=== PATIENT | female | born 1945 | race Caucasian/White ===

== ENCOUNTER 2018-11-19 02:45 | Outpatient (CLI) | payer MEDICARE, SELFPAY ==
[2018-11-19 11:21] LABS: HCT 32.6 % (36.0-46.0); HGB 10.9 g/dL (12.0-15.5); Hemoglobin A1C 6.3 % (4.5-6.2); Mean Corp. HGB Concentration 33.4 g/dL (32.0-36.0); Mean Corpuscular Hemoglobin 33.2 pg (27.0-33.0); Mean Corpuscular Volume 99.4 fL (80-95); Mean Platelet Volume 10.4 fL (8.0-11.0); Platelet Count 205 x1000/uL (130-400); RBC 3.28 m/cumm (4.00-5.20); RBC Distribution Width 13.2 % (11.7-14.6); White Blood Cell Count 5.77 k/cumm (4.4-10.8)
[2018-11-19 11:25] LABS: ALT 16 U/L (12-78); AST 17 U/L (15-37); Albumin 3.9 g/dL (3.4-5.0); Alkaline Phosphatase 103 U/L (46-116); Anion Gap 10.3 mmol/L (3-11); BUN 20 mg/dL (7-18); Bilirubin, Total 0.9 mg/dL (0.2-1.0); CO2 25.7 mmol/L (21.0-32.0); Calcium 9.7 mg/dL (8.5-10.1); Chloride 104 mmol/L (98-107); Cholesterol 236 mg/dL (50-200); Glucose 111 mg/dL (70-100); HDL Cholesterol 72 mg/dL (40-60); LDL CHOLESTEROL 145 mg/dL (<100); Potassium 4.5 mmol/L (3.5-5.1); Sodium 140 mmol/L (136-145); Total Protein 7.1 g/dL (6.4-8.2); Triglyceride 116 mg/dL (30-150)
== END 2018-11-19 03:05 ==
PROVIDERS: PCP Nurse Practitioner; Visit Provider Nurse Practitioner
DX: E78.00 Pure hypercholesterolemia, unspecified (principal); I10 Essential (primary) hypertension; R73.01 Impaired fasting glucose; E11.9 Type 2 diabetes mellitus without complications; R41.3 Other amnesia
CPT/HCPCS: 36415; 80053; 80061; 83721; 85027; 83036

== ENCOUNTER 2019-03-07 04:07 | Outpatient (CLI) | payer MEDICARE, SELFPAY ==
[2019-03-07 12:54] LABS: HCT 30.7 % (36.0-46.0); HGB 10.2 g/dL (12.0-15.5); Mean Corp. HGB Concentration 33.2 g/dL (32.0-36.0); Mean Corpuscular Hemoglobin 33.6 pg (27.0-33.0); Mean Platelet Volume 10.5 fL (8.0-11.0); Platelet Count 212 x1000/uL (130-400); RBC 3.04 m/cumm (4.00-5.20); RBC Distribution Width 13.3 % (11.7-14.6); White Blood Cell Count 6.61 k/cumm (4.4-10.8)
[2019-03-07 13:30] LABS: Ferritin 218 ng/mL (8-388); Folate 15.4 ng/mL (8.6-20.0); TSH (W/Ref FT4) 2.06 uIU/mL (0.36-3.74); Vitamin B12 379 pg/mL (193-986)
== END 2019-03-07 04:27 ==
PROVIDERS: PCP Nurse Practitioner; Visit Provider Nurse Practitioner
DX: D64.9 Anemia, unspecified (principal); I10 Essential (primary) hypertension; R71.8 Other abnormality of red blood cells
CPT/HCPCS: 36415; 85027; 82607; 82728; 82746; 84443

== ENCOUNTER 2020-01-07 02:37 | Outpatient (CLI) | payer MEDICARE, SELFPAY ==
[2020-01-07 11:50] LABS: ALT 15 U/L (14-59); AST 19 U/L (15-37); Albumin 3.9 g/dL (3.4-5.0); Alkaline Phosphatase 106 U/L (46-116); Anion Gap 8.4 mmol/L (3-11); BUN 21 mg/dL (7-18); Bilirubin, Total 0.9 mg/dL (0.2-1.0); CO2 28.6 mmol/L (21.0-32.0); Calcium 9.3 mg/dL (8.5-10.1); Calculated LDL 95 mg/dL (<100); Chloride 104 mmol/L (98-107); Cholesterol 183 mg/dL (<200); Glucose 112 mg/dL (74-106); HDL Cholesterol 73 mg/dL (40-60); Potassium 4.4 mmol/L (3.5-5.1); Sodium 141 mmol/L (136-145); Total Protein 6.8 g/dL (6.4-8.2); Triglyceride 79 mg/dL (<150)
== END 2020-01-07 02:57 ==
PROVIDERS: PCP Nurse Practitioner; Visit Provider Nurse Practitioner
DX: I10 Essential (primary) hypertension (principal); E78.00 Pure hypercholesterolemia, unspecified
CPT/HCPCS: 36415; 80053; 80061

== ENCOUNTER 2020-11-03 02:05 | Outpatient (CLI) | payer MEDICARE, SELFPAY ==
--- NOTE | 2020-11-03 11:15 | DI.RAD_ITS ---
EXAM: XR KNEE LT 3V AP,LAT,REJI CLINICAL HISTORY: left knee pain,m25.562. TECHNIQUE: 2D digital imaging was performed. COMPARISON: No exams were available for comparison FINDINGS: Three views reveal no evidence of fracture. There appears to be a small amount of increased joint fl uid. There are significant degenerative changes most evident in the patellofemoral and lateral sangeetha rtments. Chondrocalcinosis noted in the lateral compartment. No ominous osseous lesions. IMPRESSION: Degenerative changes. Small joint effusion. DATA REPOSITORY: RADIATION DOSE DELIVERED:
== END 2020-11-03 02:25 ==
PROVIDERS: PCP Nurse Practitioner; Visit Provider Nurse Practitioner
DX: M25.562 Pain in left knee (principal); M25.462 Effusion, left knee; M17.12 Unilateral primary osteoarthritis, left knee
CPT/HCPCS: 73562

== ENCOUNTER → 2020-12-09 08:18 | Outpatient (BNVA) | payer MEDICARE, SELFPAY | PROVIDERS: PCP Nurse Practitioner; Referring Provider Nurse Practitioner; Visit Provider Student in an Organized Health Care Education/Training Program | DX: M17.12 Unilateral primary osteoarthritis, left knee (principal) | CPT/HCPCS: 20610; 99203; J1040 ==

== ENCOUNTER → 2021-03-14 13:19 | Outpatient (BNVA) | payer MEDICARE, SELFPAY | PROVIDERS: PCP Nurse Practitioner; Referring Provider Nurse Practitioner; Visit Provider Student in an Organized Health Care Education/Training Program | DX: M17.12 Unilateral primary osteoarthritis, left knee (principal) | CPT/HCPCS: 20610; J1040 ==

== ENCOUNTER 2021-04-30 15:12 | Outpatient (REF) | payer MEDICARE, SELFPAY ==
[2021-05-02 12:25] LABS: COVID-19 RT-PCR UVMMC Result Negative (Negative)
== END 2021-04-30 15:13 | disposition home or self-care (01) ==
LOC: LBN 15:12
PROVIDERS: PCP Nurse Practitioner; Visit Provider Physician Assistant Medical
DX: Z20.822 Contact with and (suspected) exposure to COVID-19 (principal); R09.89 Other specified symptoms and signs involving the circulatory and respiratory systems
CPT/HCPCS: U0003

== ENCOUNTER 2021-06-18 22:15 | Inpatient (IN) | payer MEDICARE, SELFPAY ==
[2021-06-18] VITALS (21 sets, daily range): BP systolic 126–182; BP diastolic 75–116; PULSE 60–143; RESP 12–26; TEMP 36.3–37.1; O2SAT 90–100
--- NOTE | 2021-06-18 21:45 | DI.CT_ITS ---
Exam(s) CT HEAD WO EXAM: CT HEAD WO CLINICAL HISTORY: stroke, altered. TECHNIQUE: Imaging Protocol: Axial computed tomography images with coronal and sagittal reformatted images were created and reviewed COMPARISON: CT HEAD WITHOUT CONTRAST from 10/11/2017 FINDINGS: There are no skull fractures nor fluid in the visualized paranasal sinuses. Patient is intubated. Is a large amount of subarachnoid and intraventricular acute blood and hemorrhage fills and dilates t he entire ventricular system there is cerebellar tonsillar ectopia evident which was not evident on t he 2018 study. IMPRESSION: Large subarachnoid and intraventricular hemorrhage. RADIATION DOSE DELIVERED: 933.45mGy.cm Total DLP DATA REPOSITORY: All CT scans at this facility are submitted to the National Radiology Data Registry (NRDR) Dose Index Registry (DIR) with the [employer] (ACR). RADIATION OPTIMIZATION: All CT scans at this facility use at least one of these dose optimization te chniques: automated exposure control; mA and/or kV adjustment per patient size (includes targeted exa ms where dose is matched to clinical indication); or iterative reconstruction.
--- NOTE | 2021-06-18 21:45 | RT.EKG_ITS ---
APPROVED REPORT Exam: Resting ECG Reason for Exam: AMS Patient Location: E HR:118 bpm ECG Measurements Heart Rate 118 AXIS WV [id number] P [id number] QRSd 115 QRS -28 QT 329 T 108 QTc 463 Conclusion Atrial flutter with predominant 2:1 AV block...A-rate 238, multiple Ps Probable left ventricular hypertrophy...(RaVL+SV3)xQRSd >300 Nonspecific T abnormalities, lateral leads...T <-0.10mV, I aVL V5 V6 Minimal ST depression, no stemi.
--- NOTE | 2021-06-18 21:56 | DI.CT_ITS ---
Exam(s) CT CHEST WO EXAM: CT CHEST WO CLINICAL HISTORY: stroke, altered, intubated. TECHNIQUE: Multi planar reconstructions were performed. CONTRAST MATERIAL: None COMPARISON: CR CHEST 2 VIEWS PA,LAT from 01/10/2017 CR CHEST 2 VIEWS PA,LAT from 01/10/2017 FINDINGS: CHEST: LUNGS: The patient is intubated. Distal tip of the endotracheal tube none is above the francis. Ther e is an NG tube in the stomach. There are extensive bilateral infiltrates, both ground-glass and confluent, involving all lobes of tammy th lungs but most prominent in the lower lobes. No associated pleural effusions. MEDIASTINUM: There is no obvious hilar nor mediastinal adenopathy. Right thyroid lobe is enlarged and contains partially calcified nodules.No obvious axillary adenopathy CARDIAC: Heart size upper normal. No pericardial effusion.Caliber of the thoracic aorta is within no rmal limits. VISUALIZED UPPER ABDOMEN:No adrenal masses evident OSSEOUS: No significant osseous lesions.. IMPRESSION: 1. Extensive bilateral infiltrates. Suspicious for Covid pneumonia. No pleural effusions nor intrat horacic adenopathy. 2. Endotracheal tube distal tip is approximately 3 cm above the francis. NG tube is in the stomach. 3. RADIATION DOSE DELIVERED: 555mGy.cm Total DLP DATA REPOSITORY: All CT scans at this facility are submitted to the National Radiology Data Registry (NRDR) Dose Index Registry (DIR) with the [employer] (ACR). RADIATION OPTIMIZATION: All CT scans at this facility use at least one of these dose optimization te chniques: automated exposure control; mA and/or kV adjustment per patient size (includes targeted exa ms where dose is matched to clinical indication); or iterative reconstruction.
--- NOTE | 2021-06-18 22:11 | W.ED.GENAD ---
Discharge Plan Disposition Patient Disposition: [facility] INPATIENT Condition: Critical Discharge Details Chief Complaint: CVA/TIA Clinical Impression: Intracranial hemorrhage, Aspiration pneumonia, Acute non-ST elevation myocardial infarction (NSTEMI), Acute respiratory failure, Need for comfort care Primary Care Provider: Elise Parra ED Provider: Amilcar Enriquez Home Meds and New Rx's Prescriptions: No Action omega-3 fatty acids [Fish Oil Concentrate] 1,000 mg capsule 1,000 mg PO DAILY RF: 0 Centrum Complete 1 EACH tablet 1 tab-cap PO DAILY RF: 0 Combigan 5 ML drops 5 ml Ophthalmic BID Qty: 1 RF: 0 atorvastatin 20 mg tablet 20 mg PO QHS Qty: 90 RF: 3 lisinopril 20 mg tablet 20 mg PO DAILY Qty: 90 RF: 3 citalopram 20 mg tablet 20 mg PO DAILY Qty: 90 RF: 3 Medical Decision Making This is a 76-year-old female with a past medical history of glaucoma, high cholesterol, hypertension, cataract surgery, who presents today for evaluation of stroke. Per EMS at 8 PM (2 hour and 20 minutes prior to arrival) the patient complained of a sudden onset headache. She and her family state that she does not usually get headaches. She went to the bathroom, and then came back out of the bathroom and collapsed into a chair. No history of trauma at that time. Per EMS she did not strike her head. Upon EMS arrival patient was altered, with sonorous respirations. Oxygenation stable. Patient was immediately brought to the ER for further management. During the transition to the ED EMS did note episodes of notable bradycardia which resolved on its own as well as rapidly diminishing respiratory effort requiring bagging upon arrival to the ED. Patient's family states that the patient is full code. No history of blood thinners, stroke or previous intracranial etiologies. No other known complaints or modifying factors at this time. Exam demonstrates response to pain with decerebrate posturing for the left upper extremity however no response to any pain or movement for the right upper or lower extremities. There is also mild twitching of the left lower extremity with response to pain. Agonal respirations are noted. Neuro exam otherwise limited. GCS of 4. Pupils are fixed at 3 to 4 mm. Differential at this time is highest for stroke, or bleed. 12:[address] scan shows large subarachnoid hemorrhage with intraventricular hemorrhage. There is also evidence of herniation with tonsillar crowding at the britt platelets are normal. The patient is not on anticoagulation. Initially the patient pressure was high at 170, however this normalized on its own as we are prepping to start nicardipine drip. CT scan of the chest shows evidence of notable severe multilobar pulmonary disease, likely multilobar pneumonia. I suspect this is secondary to aspiration pneumonia, CMS does state she had gurgling respirations on their assessment initially. Unasyn has been started. Patient's neurologic status remains the same. Patient's troponin is elevated, EKG shows no STEMI. The brain bleed is clearly a contraindication for aspirin or blood thinners. I had a notably extensive conversation with the patient's , son, daughter, and grandson. I was very clear and inform them of the patient's current status, the high likelihood of a poor prognosis, and the potential for . I also made it clear that there is unlikely that the patient would ever return to even a seminormal state. Understanding all of this and the patient's current clinical scenario the family made it unequivocally clear that it was of the highest priority to send the patient to a tertiary care center for continued neuro ICU management. We contacted [facility] and they are on diversion and do not have any beds. We contacted the [facility] and they do not have any beds for transfer. We contacted [facility], they do not have any beds for transfer. We contacted [facility] in [place] and they do not have any beds available for transfer. We contacted [facility] and discussed the case with them. They do have a bed available for transfer. I did speak with the neurosurgeon Dr. Ritchie, and he recommends transfer to the ED for further management and placement in the. No neurosurgical intervention indicated at this time. Patient's blood pressure remains in the 120s currently. Neuro status stable from initial assessment. Additionally we do not have any crews that are able to transfer the patient from both [facility] services or [facility]. [facility] is not flying currently. We will try to facilitate [facility] ground transport to [place] We will start mannitol at 1 g per kg for the herniation, and 2 g of Keppra for seizure prevention. 12:47 AM Although [place] initially accepted transfer, they just called back and stated that they have changed their disposition and they will no longer be able to take the patient. We called the [facility] ground crew and they were halted. 1:30 AM [facility] did call us back and I spoke with Dr. Diallo and Dr. Rider of neurosurgery, and upon their review of the images, and the case, they feel that the likelihood of meaningful recovery is extremely slim even with heroic interventions. Family is arriving, and we will again reviewed the case with family and determine their desire for transfer. I did reevaluate the patient, and currently patient has no neurologic response. Her pupils are fixed at 3 mm. She has no movement or response to painful stimuli, she demonstrates no twitching. 2:08 AM After a long and extensive conversation with the , the son, and the daughter Alise, after a clear discussion of the likelihood of meaningful recovery, as well as mateus discussion about the patient's current prognostic state, family verbalizes that they feel that their mother's preference would be to be made comfortable, and would not want to have heroic interventions done if in the best case scenario she would not be able to live her life as she normally would prior to the stroke. Benadryl understanding this, family has elected to the patient here and transition her to comfort measures. Son Richie, daughter Alise, and are in agreement with this plan. Family is not willing to have the patient extubated at this time. I spoke with the hospitalist on-call Dr. Villa, he agrees with the plan. I will place bridging orders on his behalf. Patient will be admitted to the ICU. I have extensively reviewed the treatment plan with the patient. I have addressed all patient concerns at this time. I have also discussed the plan with the admitting physician and they agree with the current assessment and plan and have agreed to assume responsibility for the patient. All parties demonstrate verbal understanding and agreement with our assessment and plan at this time. The documentation in this chart was dictated using [employer] dictation software. Please excuse any dictation errors. FINDINGS: Brain: Large amount of subarachnoid and intraventricular hemorrhage, new from prior exam. Hemorrhage fills and moderately expands the lateral, 3rd and 4th ventricle. There is tonsillar crowding/herniation at the foramen magnum Cerebral ventricles: See Brain finding. Paranasal sinuses: Visualized sinuses are unremarkable. No fluid levels. Mastoid air cells: Visualized mastoid air cells are well aerated. Bones/joints: Unremarkable. No acute fracture. Soft tissues: Unremarkable. IMPRESSION: Large subarachnoid and intraventricular hemorrhage. ASSESSMENT: ASPECTS ([place] Stroke Program Early CT Score) is 10. Thank you for allowing us to participate in the care of your patient. Dictated and Authenticated by: Elvia Sánchez MD FINDINGS: Tubes, catheters and devices: Endotracheal tube in satisfactory position. Nasogastric tube in the stomach. Thyroid: Large right thyroid nodule. Follow-up as per institutional protocol. Trachea: Small amount of debris in the upper trachea. Lungs: Severe multilobar opacities most pronounced in the lower lobes. Superimposed on generalized ground-glass opacities and apical predominant interlobular septal thickening. Pleural spaces: No pneumothorax. No pleural effusion. Heart: Mild cardiomegaly. Aorta: Mild dilation of the ascending aorta. Normal caliber of the descending aorta.. Veins: Benign appearing intravenous gas left greater than right subclavian region. Lymph nodes: No enlarged lymph nodes. Gallbladder and bile ducts: Suspected cholelithiasis versus calcification in the gallbladder wall. Bones/joints: Minor densities in the anterior chest wall subcutaneous fat anterior to the sternum however no measurable collection or hematoma. Degenerative changes in the spine. No displaced fracture or subluxation. Soft tissues: No suspicious lesions. IMPRESSION: 1. Severe multilobar pulmonary disease as described. Probably multilobar pneumonia with superimposed edema. Less commonly severe alveolar and interstitial edema alone can have this appearance. 2. Mild cardiomegaly. 3. Lines and tubes in satisfactory position. 4. Small amount of debris in the upper trachea. 5. Incidental findings as described. Thank you for allowing us to participate in the care of your patient. Dictated and Authenticated by: Kristal Sandy MD 06/18/2021 11:42 PM Eastern Time ([place] & [place]) HPI General Date/Time Provider Initiated Documentation: 06/18/21 22:32. HPI Narrative: This is a 76-year-old female with a past medical history of glaucoma, high cholesterol, hypertension, cataract surgery, who presents today for evaluation of stroke. Per EMS at 8 PM the patient complained of a sudden onset headache. She and her family state that she does not usually get headaches. She went to the bathroom, and then came back out of the bathroom and collapsed into a chair. No history of trauma at that time. Per EMS she did not strike her head. Upon EMS arrival patient was altered, with sonorous respirations. Oxygenation stable. Patient was immediately brought to the ER for further management. During the transition to the ED EMS did note episodes of notable bradycardia which resolved on its own as well as rapidly diminishing respiratory effort requiring bagging upon arrival to the ED. Patient's family states that the patient is full code. No history of blood thinners, stroke or previous intracranial etiologies. No other known complaints or modifying factors at this time. Related Data Home Medications Medication Instructions Recorded Confirmed ipnapkkisudm-eaml-swwxu acid 1 tab-cap PO DAILY tab-cap 12/10/15 04/30/21 [Centrum Complete Multivit Tab] brimonidine-timolol [Combigan] 5 ml OPHTHALMIC BID #1 drp 01/18/17 06/02/21 omega-3 fatty acids 1,000 mg 1,000 mg PO DAILY 12/09/20 04/30/21 capsule atorvastatin 20 mg tablet 20 mg PO QHS #90 tab 02/08/21 06/18/21 lisinopril 20 mg tablet 20 mg PO DAILY #90 tab 02/08/21 06/18/21 citalopram 20 mg tablet 20 mg PO DAILY #90 tab 05/02/21 06/18/21 Previous Rx's Medication Instructions Recorded atorvastatin 20 mg tablet 20 mg PO QHS #90 tab 02/08/21 lisinopril 20 mg tablet 20 mg PO DAILY #90 tab 02/08/21 citalopram 20 mg tablet 20 mg PO DAILY #90 tab 05/02/21 Allergies Allergy/AdvReac Type Severity Reaction Status Date / Time No Known Drug Allergies Allergy Verified 06/18/21 22:33 Review of Systems All systems reviewed & are unremarkable except as noted in HPI and below PFSH Active Problem List Unilateral primary osteoarthritis, left knee (Acute) Colonoscopy refused (Acute) Mammogram declined (Acute) Depression (Chronic 10/04/17) Sebaceous cyst of labia (Acute) Branch retinal vein occlusion of left eye with macular edema (Acute) Elevated MCV (Acute) Anemia (Chronic) Anatomical narrow angle of both eyes (Acute 10/27/15) Anxiety (Acute 10/28/14) Cataracts, bilateral (Acute 10/27/15) Elevated cholesterol (Chronic 10/09/17) Glaucoma (Acute 02/24/16) Hypertension (Chronic 10/19/14) IFG (impaired fasting glucose) (Chronic 12/10/15) PCO (posterior capsular opacification), left (Acute 03/14/18) Poor memory (Acute 10/04/17) 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 Ruthie MD [facility]. Intravitreal injection with Avastin (01/03/16) 05/26/16 Shantanu Borrego MD Family History Mother , DM, Dementia at age 84. Dementia Father , Ca Prostate at age 82. Personal history of malignant neoplasm Prostate CA Son No problems noted. Son No problems noted. Daughter No problems noted. Social History Smoking/Tobacco Use Status: Never Smoking risk assessment performed?: Yes Alcohol Intake: current Alcohol Intake frequency: holidays/special occasions only Drug use: Never Substance use type: does not use Caregiver/Support person: No Household members: spouse Number of Children: 3 Communication Needs: None Current gender identity: female What type of physical activity do you participate in: walking Frequency: daily Exam Narrative Exam Narrative: 1.Const: Well-nourished, Well-developed, appearing stated age 2.Eyes: Pupils 3 mm, equal bilaterally. No significant reactivity. 3.ENT: Atraumatic external nose and ears. Moist MM. Neck: Symmetric, trachea midline, No thyromegaly. 4.CVS: +S1/S2, No murmurs or gallops. Peripheral pulses 2+ and equal in all extremities. Brisk capillary refill in all extremities. 5.RESP: Notably diminished respiratory effort. Clear to auscultation bilaterally. No wheezes rales or rhonchi 6.GI: Soft, Nontender/Nondistended, No hepatosplenomegaly. No guarding or rebound. 7.MSK: Normocephalic/Atraumatic, Extremities w/o deformity or ttp No cyanosis or clubbing, Normal movement of all extremities 8.Skin: Warm, Dry. No rashes or lesions. 9.Neuro: Decerebrate posturing with pain. GCS of 4 secondary to extension from pain. At this time patient demonstrates response to pain on the left, but no response on the right. This is opposite of what was initially found by EMS. Patient demonstrates decerebrate posturing only for the left arm, and twitching of the left lower extremity with pain. No movement on the right. Mild somewhat agonal respirations are noted. No other purposeful movements otherwise. 10.Psych: GCS of 4 Procedures Intubation Time out performed: Yes sedative: Etomidate Mg Given: 20 paralytic: Rocuronium Mg Given: 100 Laryngoscope: none ET Tube Size: 6 ET Tube Uncuffed: No Tube Secured Depth (cm): 21 Tube Secured Location: teeth Tube Placement Confirmation: visualized tube passing through cords and equal breath sounds bilaterally Patient Tolerated Procedure: well Intubation Complications: difficult intubation Additional Comments: Intubation was initially attempted with 7.5 endotracheal tube. Patient's vocal cords were notably close together, and I was unable to pass the tube through the cords. Tube was switched out to a 6.0 tube, and is passed through the cords without complication or difficulty. Intubation was otherwise uncomplicated. Critical Care Time Critical Care Time Critical Care Time: Yes Total Critical Care Time: 85 Attestation: Upon my evaluation, this patient had a high probability of imminent or life-threatening deterioration, which required my direct attention, intervention, and personal management. I have personally provided 85 minutes of critical care time exclusive of time spent on separately billable procedures. Time includes review of laboratory data, radiology results, discussion with consultants, and monitoring for potential decompensation. Interventions were performed as documented.
[2021-06-18] MEDS: Etomidate 20 MG/10 ML VIAL IVP (22:23)
[2021-06-18 22:28] LABS: Abs Immature Grans 0.09 10^3/uL (0.0-0.06); Absolute Basophil Count 0.07 10^3/uL (0.0-0.2); Absolute Eosinophil Count 0.11 10^3/uL (0.0-0.7); Absolute Lymphocyte Count 3.47 10^3/uL (1.2-3.4); Absolute Neutrophil Count 13.88 10^3/uL (1.2-6.7); Basophils % 0.4; Eosinophils % 0.6; HCT 36.1 % (36.0-46.0); HGB 11.3 g/dL (11.2-15.7); Immature Grans % 0.5; Lymphocytes % 18.9; MCH 31.2 pg (27.0-33.0); MCHC 31.3 % (32.0-36.0); MCV 99.7 fL (80-95); MPV 10.1 fL (8.0-11.0); Neutrophils % 75.6; Nucleated RBC 0 %; Platelet Count 228 10^3/uL (130-400); RBC 3.62 10^6/uL (3.93-5.22); RDW 12.7 % (11.7-14.6); RDW-SD 46.5 fL; WBC 18.36 10^3/uL (4.4-10.8)
[2021-06-18 22:29] LABS: Absolute Monocyte Count 0.73 10^3/uL (0.1-0.8)
[2021-06-18 22:30] LABS: Source Nasal/Nares
[2021-06-18] MEDS: PROPOFOL 1,000 MG/100 ML BTL 13.7 MG (22:30)
[2021-06-18 22:52] LABS: Salicylate < 2.8 mg/dL (<2.8)
[2021-06-18 22:56] LABS: Acetaminophen < 2 ug/mL (10-30)
[2021-06-18 22:57] LABS: ALT 40 U/L (14-59); AST 59 U/L (15-37); Albumin 4.2 g/dL (3.4-5.0); Alkaline Phosphatase 114 U/L (46-116); Anion Gap 13.1 mmol/L (3-11); BUN 25 mg/dL (7-18); Bilirubin, Total 0.8 mg/dL (0.2-1.0); CO2 22.9 mmol/L (21.0-32.0); CREATININE 0.9 mg/dL (0.55-1.02); Calcium 9.4 mg/dL (8.5-10.1); Chloride 101 mmol/L (98-107); Glucose 238 mg/dL (74-106); Potassium 3.8 mmol/L (3.5-5.1); Prothrombin Time 10.5 sec (9.3-11.0); Sodium 137 mmol/L (136-145); TSH (W/Ref FT4) 2.53 uIU/mL (0.36-3.74); Total Protein 7.7 g/dL (6.4-8.2)
[2021-06-18 22:59] LABS: Troponin I 0.69 ng/mL (<0.06)
[2021-06-18 23:08] LABS: PTT Activated < 17.8 sec (21.0-27.5)
[2021-06-18 23:13] LABS: COVID-19 PCR Negative (Negative)
--- NOTE | 2021-06-18 23:14 | DI.VRAD_ITS ---
PROCEDURE INFORMATION: Exam: CT Head Without Contrast Exam date and time: 06/18/2021 9:58 PM Age: 76 years old Clinical indication: Alteration of consciousness; Patient HX: Stroke, altered TECHNIQUE: Imaging protocol: Computed tomography of the head without contrast. Other technique: STROKE PROTOCOL was implemented. COMPARISON: CT HEAD WITHOUT CONTRAST 10/11/2017 2:31 PM FINDINGS: Brain: Large amount of subarachnoid and intraventricular hemorrhage, new from prior exam. Hemorrhage fills and moderately expands the lateral, 3rd and 4th ventricle. There is tonsillar crowding/herniation at the foramen magnum Cerebral ventricles: See Brain finding. Paranasal sinuses: Visualized sinuses are unremarkable. No fluid levels. Mastoid air cells: Visualized mastoid air cells are well aerated. Bones/joints: Unremarkable. No acute fracture. Soft tissues: Unremarkable. IMPRESSION: Large subarachnoid and intraventricular hemorrhage. ASSESSMENT: ASPECTS ([place] Stroke Program Early CT Score) is 10. Dictated and Authenticated by: Elvia Sánchez MD. Ordering:LANDY Fitzgerald MD
[2021-06-18 23:16] LABS: BE -4 mmol/L (-2-3); HCO3 24 mmol/L (22-26); pCO2 56 mmHg (35-45); pH 7.23 (7.35-7.45); pO2 122 mmHg (80-105); sO2 98 % (95-98); tCO2 23 mmol/L (23-27)
[2021-06-18 23:32] LABS: FIO2 100 %; Site Right Radial
[2021-06-18] MEDS: AMPICILLIN/SULBACTAM 3 GM in Normal Saline 100 ML IVPB (23:35)
--- NOTE | 2021-06-18 23:43 | DI.VRAD_ITS ---
PROCEDURE INFORMATION: Exam: CT Chest Without Contrast; Diagnostic Exam date and time: 06/18/2021 22:11 Age: 76 years old Clinical indication: Other: Stroke TECHNIQUE: Imaging protocol: Diagnostic computed tomography of the chest without contrast. 3D rendering (Not supervised by radiologist): MIP and/or 3D reconstructed images were created by the technologist. COMPARISON: CR CHEST 2 VIEWS PA,LAT 01/10/2017 14:44 FINDINGS: Tubes, catheters and devices: Endotracheal tube in satisfactory position. Nasogastric tube in the stomach. Thyroid: Large right thyroid nodule. Follow-up as per institutional protocol. Trachea: Small amount of debris in the upper trachea. Lungs: Severe multilobar opacities most pronounced in the lower lobes. Superimposed on generalized ground-glass opacities and apical predominant interlobular septal thickening. Pleural spaces: No pneumothorax. No pleural effusion. Heart: Mild cardiomegaly. Aorta: Mild dilation of the ascending aorta. Normal caliber of the descending aorta.. Veins: Benign appearing intravenous gas left greater than right subclavian region. Lymph nodes: No enlarged lymph nodes. Gallbladder and bile ducts: Suspected cholelithiasis versus calcification in the gallbladder wall. Bones/joints: Minor densities in the anterior chest wall subcutaneous fat anterior to the sternum however no measurable collection or hematoma. Degenerative changes in the spine. No displaced fracture or subluxation. Soft tissues: No suspicious lesions. IMPRESSION: 1. Severe multilobar pulmonary disease as described. Probably multilobar pneumonia with superimposed edema. Less commonly severe alveolar and interstitial edema alone can have this appearance. 2. Mild cardiomegaly. 3. Lines and tubes in satisfactory position. 4. Small amount of debris in the upper trachea. 5. Incidental findings as described. Dictated and Authenticated by: Kristal Sandy MD. Ordering:LANDY Fitzgerald MD
[2021-06-18 23:45] LABS: Bilirubin Negative (Negative); Blood Small (Negative); Clarity Clear (Clear); Glucose 500 mg/dL (Negative); Ketones 15 mg/dL (Negative); Leukocyte Esterase Negative (Negative); Nitrite Negative (Negative); Specific Gravity >= 1.030 (1.005-1.025); Urobilinogen 0.2 EU/dL (Up TO 0.2)
[2021-06-18 23:48] LABS: Bacteria Few HPF (Negative); C & S Indicated? No; Casts 0-2 Hyaline LPF (Negative); Crystals Negative HPF (Negative); Epithelial Cells Few HPF (Negative); Mucus Negative (Negative); WBC Negative HPF (0-5)
[2021-06-18 23:55] LABS: *AMPHETAMINES SCREEN URINE Negative (Negative); *BARBITURATES SCREEN URINE Negative (Negative); *BENZODIAZEPINES SCREEN URINE Negative (Negative); Cannabinoids THC Negative (Negative); Cocaine Screen,Urine Negative (Negative); METHADONE URINE SCREEN Negative (Negative); OPIATES URINE SCREEN Negative (Negative)
[2021-06-19] VITALS (217 sets, daily range): BP systolic 72–143; BP diastolic 35–88; PULSE 68–102; RESP 14–24; TEMP 36.2; O2SAT 94–100
[2021-06-19 00:11] LABS: Tricyclic Antidepressants Negative (Negative)
[2021-06-19] MEDS: levETIRAcetam 2,000 MG in Normal Saline 100 ML 400 MG IVPB (00:23)
[2021-06-19 01:14] LABS: BE -3 mmol/L (-2-3); FIO2 Unknown/Not Given %; FIO2L Unknown/Not Given L; HCO3 24 mmol/L (22-26); Site Arterial Line; pCO2 49 mmHg (35-45); pO2 156 mmHg (80-105); sO2 > 99 % (95-98)
[2021-06-19 01:48] LABS: Troponin I 4.76 ng/mL (<0.06)
[2021-06-19] MEDS: PROPOFOL 1,000 MG/100 ML BTL 13.65 MG IVPB (04:30)
--- NOTE | 2021-06-19 08:01 | HPE_ITS ---
Date of service: 06/19/21 Time of Service: 08:02 Assessment and Plan Assessment and plan (1) Intracranial hemorrhage: Status: Acute Assessment and plan: Spontaneous intracerebral bleed. She has normal platelet not on anticoagulants. There does not appear to be an immediate surgical intervention available nor does it appears this this would alter her overall course. The plan at this point he is comfort measures with planned extubation once family members have gathered. (2) Aspiration pneumonia: Status: Acute Assessment and plan: She is noted to have a pneumonitis by chest x-ray. This time she had an aspiration event during her respiratory distress. (3) Acute non-ST elevation myocardial infarction (NSTEMI): Status: Acute Assessment and plan: Her cardiac troponins are elevated. It looks like a non-ST elevation [place] occurred intercurrent with her bleed. (4) Acute respiratory failure: Status: Acute Assessment and plan: She was intubated in the emergency room electively for her respiratory failure. She has no spontaneous respiratory effort at this time. (5) Need for comfort care: Status: Acute Assessment and plan: Catastrophic intracerebral hemorrhage. Comfort measures only with planned extubation once family members have assembled. History of Present Illness History of Present Illness Chief Complaint: Cerebral hemorrhage/aspiration pneumonia/non-ST elevation [place] Narrative: This is a 76-year-old female that complained of sudden onset of headaches this past evening. She went to the bathroom and when she came out of the bathroom collapsed into a chair. Upon EMS arrival the patient was minimally responsive with sonorous respirations. During EMS transport she had an episode of bradycardia which resolved on its own. She was noted to have rapidly diminishing respiratory effort requiring bagging upon arrival to the ED. She did have a slight response to pain with decerebrate posturing on the left upper extremity but no response to pain or any movement on the right upper or lower extremities. Agonal respirations were noted. She was intubated by rapid sequence intubation. She is maintained on the ventilator. CT scan shows a large subarachnoid hemorrhage with intraventricular hemorrhage. There is evidence of herniation with tonsillar crowding at the foramen. Attempts were made in the ED for urgent transfer for neurosurgery. There were no available bed. On further discussion with the immediate family at the bedside she was made DNR/DNI and placed on comfort measures. There is a daughter coming in from [place] and the family did not want to remove life- sustaining treatments until her arrival. She is transported to the ICU for comfort measures care. Review of Systems Narrative: Unobtainable. [facility] Active Problem List (Updated 06/19/21 @ 08:10 by Portillo Barrios MD) Intracranial hemorrhage (Acute) Aspiration pneumonia (Acute) Acute non-ST elevation myocardial infarction (NSTEMI) (Acute) Acute respiratory failure (Acute) Need for comfort care (Acute) Medical History (Updated 06/19/21 @ 08:10 by Portillo Barrios MD) Anatomical narrow angle of both eyes (10/27/15) Anemia Anxiety Anxiety (10/28/14) Branch retinal vein occlusion of left eye with macular edema 04/18/19 Dr Henriquez, [facility] [place] Cataracts, bilateral (10/27/15) Colonoscopy refused Depression (10/04/17) Elevated cholesterol (10/09/17) Elevated MCV GLAUCOMA Glaucoma (02/24/16) [facility] Branch retinal vein occlusion w/macular edema left eye HLD (hyperlipidemia) HTN (hypertension) Hypertension (10/19/14) IFG (impaired fasting glucose) IFG (impaired fasting glucose) (12/10/15) Mammogram declined PCO (posterior capsular opacification), left (03/14/18) 03/14/18 L Macular Pucker, Dr Henriquez 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 Ruthie [facility]. Intravitreal injection with Avastin (01/03/16) 05/26/16 Shantanu Borrego MD Family History Mother , DM, Dementia at age 84. Dementia Father , Ca Prostate at age 82. Personal history of malignant neoplasm Prostate CA Son No problems noted. Son No problems noted. Daughter No problems noted. Social History Smoking/Tobacco Use Status: Never Smoking risk assessment performed?: Yes Alcohol Intake: current Alcohol Intake frequency: holidays/special occasions only Drug use: Never Substance use type: does not use Caregiver/Support person: No Household members: spouse Number of Children: 3 Communication Needs: None Current gender identity: female What type of physical activity do you participate in: walking Frequency: daily Meds Allergies and Home Medications Allergies Allergy/AdvReac Type Severity Reaction Status Date / Time No Known Drug Allergies Allergy Verified 06/18/21 22:33 Home Medications Medication Instructions Recorded Confirmed Type [id number] acid 1 tab-cap PO DAILY tab-cap 12/10/15 04/30/21 History [Centrum Complete Multivit Tab] brimonidine-timolol [Combigan] 5 ml OPHTHALMIC BID #1 drp 01/18/17 06/02/21 History omega-3 fatty acids 1,000 mg 1,000 mg PO DAILY 12/09/20 04/30/21 History capsule atorvastatin 20 mg tablet 20 mg PO QHS #90 tab 02/08/21 06/18/21 Rx lisinopril 20 mg tablet 20 mg PO DAILY #90 tab 02/08/21 06/18/21 Rx citalopram 20 mg tablet 20 mg PO DAILY #90 tab 05/02/21 06/18/21 Rx Exam Narrative Exam Narrative: On exam the patient is completely unresponsive. Painful stimuli to the lower extremity revealed no response. The sternal rub did give a slight movement of the left arm which was decerebrate posturing. There was no facial grimacing or response to painful stimuli. She has no spontaneous respiratory effort. Results Labs Result diagrams: 06/18/21 22:18 06/18/21 22:18 Labs: Laboratory Results - last 24 hr 06/18/21 06/18/21 06/18/21 22:05 22:18 22:18 WBC 18.36 H RBC 3.62 L Hgb 11.3 Hct 36.1 MCV 99.7 H MCH 31.2 MCHC 31.3 L RDW 12.7 Plt Count 228 MPV 10.1 Immature Gran % 0.5 Neutrophils % 75.6 Lymphocytes % 18.9 Monocytes % 4.0 Eosinophils % 0.6 Basophils % 0.4 Nucleated RBC % 0 Absolute Neutrophils 13.88 H Absolute Lymphocytes 3.47 H Absolute Monocytes 0.73 Absolute Eosinophils 0.11 Absolute Basophils 0.07 PT INR APTT ABG Sample Site ABG pH ABG pCO2 ABG pO2 ABG HCO3 ABG Total CO2 ABG O2 Saturation ABG Base Excess Oxygen Liter Flow FiO2 Sodium 137 Potassium 3.8 Chloride 101 Carbon Dioxide 22.9 Anion Gap 13.1 H BUN 25 H Creatinine 0.9 Estimated GFR/1.73 m2 >= 60.00 Glucose 238 H Calcium 9.4 Total Bilirubin 0.8 AST 59 H ALT 40 Alkaline Phosphatase 114 Troponin I 0.69 H* Total Protein 7.7 Albumin 4.2 TSH 2.53 Urine Color Urine Clarity Urine pH Ur Specific [place] Urine Protein Urine Ketones Urine Blood Urine Nitrite Urine Bilirubin Urine Urobilinogen Ur Leukocyte Esterase Urine RBC Urine WBC Ur Epithelial Cells Urine Crystals Urine Bacteria Urine Casts Urine Mucus Ur Culture Indicated? Urine Glucose Salicylates Urine Opiates Screen Urine Methadone Screen Acetaminophen Ur Barbiturates Screen Ur Tricyclics Screen Ur Amphetamines Screen U Benzodiazepines Scrn Urine Cocaine Screen Ur THC Screen COVID-19 Source Nasal/Nares SARS-CoV-2 (PCR) Negative 06/18/21 06/18/21 06/18/21 22:18 22:18 23:28 WBC RBC Hgb Hct MCV MCH MCHC RDW Plt Count MPV Immature Gran % Neutrophils % Lymphocytes % Monocytes % Eosinophils % Basophils % Nucleated RBC % Absolute Neutrophils Absolute Lymphocytes Absolute Monocytes Absolute Eosinophils Absolute Basophils PT 10.5 INR 1.0 APTT < 17.8 L ABG Sample Site Right Radial ABG pH 7.23 L ABG pCO2 56 H ABG pO2 122 H ABG HCO3 24 ABG Total CO2 23 ABG O2 Saturation 98 ABG Base Excess -4 L Oxygen Liter Flow FiO2 100 Sodium Potassium Chloride Carbon Dioxide Anion Gap BUN Creatinine Estimated GFR/1.73 m2 Glucose Calcium Total Bilirubin AST ALT Alkaline Phosphatase Troponin I Total Protein Albumin TSH Urine Color Urine Clarity Urine pH Ur Specific [place] Urine Protein Urine Ketones Urine Blood Urine Nitrite Urine Bilirubin Urine Urobilinogen Ur Leukocyte Esterase Urine RBC Urine WBC Ur Epithelial Cells Urine Crystals Urine Bacteria Urine Casts Urine Mucus Ur Culture Indicated? Urine Glucose Salicylates < 2.8 Urine Opiates Screen Urine Methadone Screen Acetaminophen < 2 Ur Barbiturates Screen Ur Tricyclics Screen Ur Amphetamines Screen U Benzodiazepines Scrn Urine Cocaine Screen Ur THC Screen COVID-19 Source SARS-CoV-2 (PCR) 06/18/21 06/18/21 06/19/21 23:30 23:30 00:53 WBC RBC Hgb Hct MCV MCH MCHC RDW Plt Count MPV Immature Gran % Neutrophils % Lymphocytes % Monocytes % Eosinophils % Basophils % Nucleated RBC % Absolute Neutrophils Absolute Lymphocytes Absolute Monocytes Absolute Eosinophils Absolute Basophils PT INR APTT ABG Sample Site Arterial Line ABG pH 7.30 L ABG pCO2 49 H ABG pO2 156 H ABG HCO3 24 ABG Total CO2 Not Applicable ABG O2 Saturation > 99 H ABG Base Excess -3 L Oxygen Liter Flow Unknown/Not Given FiO2 Unknown/Not Given Sodium Potassium Chloride Carbon Dioxide Anion Gap BUN Creatinine Estimated GFR/1.73 m2 Glucose Calcium Total Bilirubin AST ALT Alkaline Phosphatase Troponin I Total Protein Albumin TSH Urine Color Yellow Urine Clarity Clear Urine pH 7.0 Ur Specific [place] >= 1.030 H Urine Protein 100 H Urine Ketones 15 H Urine Blood Small H Urine Nitrite Negative Urine Bilirubin Negative Urine Urobilinogen 0.2 Ur Leukocyte Esterase Negative Urine RBC 5-10 H Urine WBC Negative Ur Epithelial Cells Few Urine Crystals Negative Urine Bacteria Few Urine Casts 0-2 Hyaline Urine Mucus Negative Ur Culture Indicated? No Urine Glucose 500 H Salicylates Urine Opiates Screen Negative Urine Methadone Screen Negative Acetaminophen Ur Barbiturates Screen Negative Ur Tricyclics Screen Negative Ur Amphetamines Screen Negative U Benzodiazepines Scrn Negative Urine Cocaine Screen Negative Ur THC Screen Negative COVID-19 Source SARS-CoV-2 (PCR) 06/19/21 01:18 WBC RBC Hgb Hct MCV MCH MCHC RDW Plt Count MPV Immature Gran % Neutrophils % Lymphocytes % Monocytes % Eosinophils % Basophils % Nucleated RBC % Absolute Neutrophils Absolute Lymphocytes Absolute Monocytes Absolute Eosinophils Absolute Basophils PT INR APTT ABG Sample Site ABG pH ABG pCO2 ABG pO2 ABG HCO3 ABG Total CO2 ABG O2 Saturation ABG Base Excess Oxygen Liter Flow FiO2 Sodium Potassium Chloride Carbon Dioxide Anion Gap BUN Creatinine Estimated GFR/1.73 m2 Glucose Calcium Total Bilirubin AST ALT Alkaline Phosphatase Troponin I 4.76 H* Total Protein Albumin TSH Urine Color Urine Clarity Urine pH Ur Specific [place] Urine Protein Urine Ketones Urine Blood Urine Nitrite Urine Bilirubin Urine Urobilinogen Ur Leukocyte Esterase Urine RBC Urine WBC Ur Epithelial Cells Urine Crystals Urine Bacteria Urine Casts Urine Mucus Ur Culture Indicated? Urine Glucose Salicylates Urine Opiates Screen Urine Methadone Screen Acetaminophen Ur Barbiturates Screen Ur Tricyclics Screen Ur Amphetamines Screen U Benzodiazepines Scrn Urine Cocaine Screen Ur THC Screen COVID-19 Source SARS-CoV-2 (PCR) Last Vital Signs Temp 37.1 C 06/18/21 23:49 Pulse 74 06/19/21 06:16 Resp 18 06/19/21 06:20 BP 115/47 L 06/19/21 06:16 Pulse Ox 100 06/19/21 06:10 PAWSS Pt Consumed Any Amount of Alcohol Within the Last 30 days OR had positive SHAHAB Upon Admission: No
--- NOTE | 2021-06-19 08:26 | W.PM.PROGNOT ---
Date of Service Date of service: 06/19/21 Time of Service: : Assessment and Plan Assessment and plan (1) Intracranial hemorrhage: Status: Acute Assessment and plan: Spontaneous intracerebral bleed. Was on fish oil as outpatient, but no other known agents that could have contributed. Agree that no surgical intervention at this point would alter the prognosis, which is poor. This was neurosurgical opinion as well. Await arrival of family for comfort extubation. (2) Aspiration pneumonia: Status: Acute Assessment and plan: Agree that this is due to an aspiration event. No abx. (3) Acute non-ST elevation myocardial infarction (NSTEMI): Status: Acute Assessment and plan: elevated troponin could be due to intracranial hemorrhage. No further workup/intervention at this time as it would not change her progrnosis. (4) Acute respiratory failure: Status: Acute Assessment and plan: Continue mechanical ventilation until comfort extubation upon arrival of daughter. (5) Need for comfort care: Status: Acute Assessment and plan: Continue comfort measures as above. Total Critical Care Time 30 minutes. Subjective Subjective Interval history since last seen: Unable to answer questions. Patient is in the ICU, intubated/sedated, on comfort measures. Awaiting arrival of daughter. Daughter expected to arrive from [place] after which comfort extubation is to be pursued. Exam Narrative Exam Narrative: General: Intubated/sedated, not responsive to verbal/painful stimuli HEENT: Not opening eyes, pupils pinpoint, unresponsive to light, not tracking. ET tube in place Heart: RRR, no m/r/g Lungs: Ventilator respiratory sounds Abdomen: soft, nondistended Extremities: no edema BLE's, involuntarily able to move L foot Objective Last Vital Signs Temp 37.1 C 06/18/21 23:49 Pulse 74 06/19/21 06:16 Resp 18 06/19/21 06:20 BP 115/47 L 06/19/21 06:16 Pulse Ox 100 06/19/21 06:10 Laboratory Results - last 24 hr 06/18/21 06/18/21 06/18/21 22:05 22:18 22:18 WBC 18.36 H RBC 3.62 L Hgb 11.3 Hct 36.1 MCV 99.7 H MCH 31.2 MCHC 31.3 L RDW 12.7 Plt Count 228 MPV 10.1 Immature Gran % 0.5 Neutrophils % 75.6 Lymphocytes % 18.9 Monocytes % 4.0 Eosinophils % 0.6 Basophils % 0.4 Nucleated RBC % 0 Absolute Neutrophils 13.88 H Absolute Lymphocytes 3.47 H Absolute Monocytes 0.73 Absolute Eosinophils 0.11 Absolute Basophils 0.07 PT INR APTT ABG Sample Site ABG pH ABG pCO2 ABG pO2 ABG HCO3 ABG Total CO2 ABG O2 Saturation ABG Base Excess Oxygen Liter Flow FiO2 Sodium 137 Potassium 3.8 Chloride 101 Carbon Dioxide 22.9 Anion Gap 13.1 H BUN 25 H Creatinine 0.9 Estimated GFR/1.73 m2 >= 60.00 Glucose 238 H Calcium 9.4 Total Bilirubin 0.8 AST 59 H ALT 40 Alkaline Phosphatase 114 Troponin I 0.69 H* Total Protein 7.7 Albumin 4.2 TSH 2.53 Urine Color Urine Clarity Urine pH Ur Specific [place] Urine Protein Urine Ketones Urine Blood Urine Nitrite Urine Bilirubin Urine Urobilinogen Ur Leukocyte Esterase Urine RBC Urine WBC Ur Epithelial Cells Urine Crystals Urine Bacteria Urine Casts Urine Mucus Ur Culture Indicated? Urine Glucose Salicylates Urine Opiates Screen Urine Methadone Screen Acetaminophen Ur Barbiturates Screen Ur Tricyclics Screen Ur Amphetamines Screen U Benzodiazepines Scrn Urine Cocaine Screen Ur THC Screen COVID-19 Source Nasal/Nares SARS-CoV-2 (PCR) Negative 06/18/21 06/18/21 06/18/21 22:18 22:18 23:28 WBC RBC Hgb Hct MCV MCH MCHC RDW Plt Count MPV Immature Gran % Neutrophils % Lymphocytes % Monocytes % Eosinophils % Basophils % Nucleated RBC % Absolute Neutrophils Absolute Lymphocytes Absolute Monocytes Absolute Eosinophils Absolute Basophils PT 10.5 INR 1.0 APTT < 17.8 L ABG Sample Site Right Radial ABG pH 7.23 L ABG pCO2 56 H ABG pO2 122 H ABG HCO3 24 ABG Total CO2 23 ABG O2 Saturation 98 ABG Base Excess -4 L Oxygen Liter Flow FiO2 100 Sodium Potassium Chloride Carbon Dioxide Anion Gap BUN Creatinine Estimated GFR/1.73 m2 Glucose Calcium Total Bilirubin AST ALT Alkaline Phosphatase Troponin I Total Protein Albumin TSH Urine Color Urine Clarity Urine pH Ur Specific [place] Urine Protein Urine Ketones Urine Blood Urine Nitrite Urine Bilirubin Urine Urobilinogen Ur Leukocyte Esterase Urine RBC Urine WBC Ur Epithelial Cells Urine Crystals Urine Bacteria Urine Casts Urine Mucus Ur Culture Indicated? Urine Glucose Salicylates < 2.8 Urine Opiates Screen Urine Methadone Screen Acetaminophen < 2 Ur Barbiturates Screen Ur Tricyclics Screen Ur Amphetamines Screen U Benzodiazepines Scrn Urine Cocaine Screen Ur THC Screen COVID-19 Source SARS-CoV-2 (PCR) 06/18/21 06/18/21 06/19/21 23:30 23:30 00:53 WBC RBC Hgb Hct MCV MCH MCHC RDW Plt Count MPV Immature Gran % Neutrophils % Lymphocytes % Monocytes % Eosinophils % Basophils % Nucleated RBC % Absolute Neutrophils Absolute Lymphocytes Absolute Monocytes Absolute Eosinophils Absolute Basophils PT INR APTT ABG Sample Site Arterial Line ABG pH 7.30 L ABG pCO2 49 H ABG pO2 156 H ABG HCO3 24 ABG Total CO2 Not Applicable ABG O2 Saturation > 99 H ABG Base Excess -3 L Oxygen Liter Flow Unknown/Not Given FiO2 Unknown/Not Given Sodium Potassium Chloride Carbon Dioxide Anion Gap BUN Creatinine Estimated GFR/1.73 m2 Glucose Calcium Total Bilirubin AST ALT Alkaline Phosphatase Troponin I Total Protein Albumin TSH Urine Color Yellow Urine Clarity Clear Urine pH 7.0 Ur Specific [place] >= 1.030 H Urine Protein 100 H Urine Ketones 15 H Urine Blood Small H Urine Nitrite Negative Urine Bilirubin Negative Urine Urobilinogen 0.2 Ur Leukocyte Esterase Negative Urine RBC 5-10 H Urine WBC Negative Ur Epithelial Cells Few Urine Crystals Negative Urine Bacteria Few Urine Casts 0-2 Hyaline Urine Mucus Negative Ur Culture Indicated? No Urine Glucose 500 H Salicylates Urine Opiates Screen Negative Urine Methadone Screen Negative Acetaminophen Ur Barbiturates Screen Negative Ur Tricyclics Screen Negative Ur Amphetamines Screen Negative U Benzodiazepines Scrn Negative Urine Cocaine Screen Negative Ur THC Screen Negative COVID-19 Source SARS-CoV-2 (PCR) 06/19/21 01:18 WBC RBC Hgb Hct MCV MCH MCHC RDW Plt Count MPV Immature Gran % Neutrophils % Lymphocytes % Monocytes % Eosinophils % Basophils % Nucleated RBC % Absolute Neutrophils Absolute Lymphocytes Absolute Monocytes Absolute Eosinophils Absolute Basophils PT INR APTT ABG Sample Site ABG pH ABG pCO2 ABG pO2 ABG HCO3 ABG Total CO2 ABG O2 Saturation ABG Base Excess Oxygen Liter Flow FiO2 Sodium Potassium Chloride Carbon Dioxide Anion Gap BUN Creatinine Estimated GFR/1.73 m2 Glucose Calcium Total Bilirubin AST ALT Alkaline Phosphatase Troponin I 4.76 H* Total Protein Albumin TSH Urine Color Urine Clarity Urine pH Ur Specific [place] Urine Protein Urine Ketones Urine Blood Urine Nitrite Urine Bilirubin Urine Urobilinogen Ur Leukocyte Esterase Urine RBC Urine WBC Ur Epithelial Cells Urine Crystals Urine Bacteria Urine Casts Urine Mucus Ur Culture Indicated? Urine Glucose Salicylates Urine Opiates Screen Urine Methadone Screen Acetaminophen Ur Barbiturates Screen Ur Tricyclics Screen Ur Amphetamines Screen U Benzodiazepines Scrn Urine Cocaine Screen Ur THC Screen COVID-19 Source SARS-CoV-2 (PCR) PAWSS Pt Consumed Any Amount of Alcohol Within the Last 30 days OR had positive SHAHAB Upon Admission: No
[2021-06-19] MEDS: MORPHine 2 MG/ML SYR 1 MG IVP ×4 (10:00→23:30)
[2021-06-19] MEDS: Pantoprazole 40 MG VIAL IVP (10:01)
[2021-06-19] MEDS: Normal Saline Flush 10 ML SYR IVP (10:01)
--- NOTE | 2021-06-19 10:27 | INITIAL_ITS ---
- If Service Date Differs Date of service: 06/19/21 Time of Service: 10:27 Care Management Initial Assess REASON FOR HOSPITALIZATION:: Intracranial Hemorrhage PAST MEDICAL HISTORY/PAST SURGICAL HISTORY:: Active Problem List. Intracranial hemorrhage (Acute). Aspiration pneumonia (Acute). Acute non-ST elevation myocardial infarction (NSTEMI) (Acute). Acute respiratory failure (Acute). Need for comfort care (Acute). Medical History. Anatomical narrow angle of both eyes (10/27/15). Anemia. Anxiety. Anxiety (10/28/14). Branch retinal vein occlusion of left eye with macular edema. 04/18/19 Dr Henriquez [facility] [place]. Cataracts, bilateral (10/27/15). Colonoscopy refused. Depression (10/04/17). Elevated cholesterol (10/09/17). Elevated MCV. GLAUCOMA. Glaucoma (02/24/16). [facility]. Branch retinal vein occlusion w/macular edema left eye. HLD (hyperlipidemia). HTN (hypertension). Hypertension (10/19/14). IFG (impaired fasting glucose). IFG (impaired fasting glucose) (12/10/15). Mammogram declined. PCO (posterior capsular opacification), left (03/14/18). 03/14/18 L Macular Pucker, Dr Henriquez [facility]. Poor memory (10/04/17). Sebaceous cyst of labia. Tributary retinal vein occlusion of left eye (10/27/15). Unilateral primary osteoarthritis, left knee. Depo-Medrol injection: 02/15/21; 12/10/2020. Surgical History. Cataract right (05/07/17). Extraction of cataract (04/09/17). left eye, Dr. Ruthie [facility]. Intravitreal injection with Avastin (01/03/16). 05/26/16. Shantanu Borrego MD PREVIOUS FUNCTIONAL STATUS/SOCIAL/FAMILY SUPPORTS:: Alise lives in [place] with her , Ramiro, and her grandson, Eris. She has three children- Ethan, Gee, and Alise. She was independent at baseline, prior to this admission. CURRENT FUNCTIONAL STATUS:: Per report, Alise is intubated and in the ICU, waiting for family to visit prior to extubation. She has been transitioned to comfort measures. CM called Ramiro, who is communicating with the rest of the family. He stated that Gee and Alise are trying to arrive as soon as possible, but are coming from long distances (Gee, [place]; Alise, [place]). CM explained that it is important that family visits soon, as we do not know how long we will be able to keep her stable. Ramiro and Eris were identified as the two consistent visitors. CM reviewed the visitation policy with Ramiro, and answered any questions he had at that time. CM will meet with Ramiro when he arrives. CM has offered video visits to family if they are unable to be present. Alise has many family members and friends who will try to visit, all within the approved visitation hours, with the exception of two of her children, Gee and Alise, who are traveling from far away and will not be able to visit until late this ev ening. RN Floor Runner has agreed to the exception to visitation outside visiting hours. CM will continue to follow. ADVANCE DIRECTIVES:: None on file. Has patient been provided with info about the portal/API?: No Did the patient sign up for the portal?: No CODE STATUS:: DNR/DNI INSURANCE COVERAGE / FINANCIAL ISSUES:: MCR CURRENT HOME/COMMUNITY SERVICES/EQUIPMENT:: No current services or equipment. PRIMARY CARE PHYSICIAN:: Elise Parra PATIENT/FAMILY EDUCATION NEEDS:: Family to gather prior to extubation, as prognosis is not good. PLAN:: Per report, Alise sustained a catastrophic intracerebral hemorrhage. She has transitioned to comfort measures, and will be extubated once her family is able to visit. CM will continue to support Alise and her family during this difficult time.
[2021-06-19] MEDS: PROPOFOL 1,000 MG/100 ML BTL 16.38 MG IVPB ×3 (11:45→19:30)
[2021-06-19] MEDS: levETIRAcetam 1,000 MG in Normal Saline 100 ML 400 MG IVPB (14:00)
--- NOTE | 2021-06-19 22:30 | NUR.NOTE ---
Addendum entered by Anam Gresham 06/19/21 22:36: Pt's Son and Daughter, Lyndsey, at bedside at this time. Original Note: Nursing Note:
[2021-06-20] VITALS (8 sets, daily range): PULSE 77–87; RESP 11–16; O2SAT 93–95
[2021-06-20] MEDS: PROPOFOL 1,000 MG/100 ML BTL 16.38 MG IVPB (01:35)
--- NOTE | 2021-06-20 01:35 | NUR.NOTE ---
Nursing Note: Gee and Alise leaving pt's bedside as Eris and Ramiro are arriving. Eris and Ramiro state they did not understand that the extubation was going to occur tonight, but rather believed that Alise and Gee would visit pt tonight, and then the whole family would gather together at another time for the extubation to occur. They were initially very upset via phone, but by the time they arrived, they were calm. Meri, RN water maintenance supervisor was made aware that the family were upset prior to their arrival. Meri notified [facility]. Eris and Ramiro visited with Alise (pt). They reiterated their confusion about the extubation occurring tonight. This RN discussed the concept of comfort measures, expressed regret about the miscommunication and gratitude for their understanding. They ultimately left the hospital on good terms.
[2021-06-20] MEDS: levETIRAcetam 1,000 MG in Normal Saline 100 ML 400 MG IVPB ×2 (01:46→15:28)
[2021-06-20] MEDS: Normal Saline Flush 10 ML SYR IVP ×2 (05:06→08:51)
--- NOTE | 2021-06-20 08:25 | W.PALLCONSUL ---
Date of service: 06/20/21 Time of Service: 08:25 History of Present Illness History of Present Illness Chief Complaint: intracranial bleed Narrative: Alise is a 76-year-old woman with a new intracranial hemorrhage. The case was discussed with both [facility] and [facility] and it was thought best that she remain at [facility] for comfort measures. She was originally intubated for airway protection, and extubated last night. Surprisingly she is breathing on her own. When I saw her she remained on a propofol drip. Assessment and Plan Assessment and plan (1) Intracranial hemorrhage: Status: Acute (2) Aspiration pneumonia: Status: Acute (3) Acute non-ST elevation myocardial infarction (NSTEMI): Status: Acute (4) Need for comfort care: Status: Acute (5) Palliative care patient: Status: Acute Assessment and plan: 76 year old woman, staus post intracranial bleed and extubation to [employer] TE[employer]ER Stop prophaphol gtt If needed start morphine gtt Move to [facility] and bed on Med Surg Stop meds not contributing to comfort Addendum: This evening I came back to see Alise and her family. Alise was moaning and had her forehead furloughed. Family felt that she was in pain. Nursing did increase her morphine drip to 3 mg/h. I also ordered lorazepam to be given hourly as needed. While there she seems to be involuntarily vomiting. Ondansetron was given Time was spent with the family to explain the stages of dying and how body systems close down. 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) Anemia Anxiety Anxiety (10/28/14) Branch retinal vein occlusion of left eye with macular edema 04/18/19 Dr Henriquez, [facility] Cataracts, bilateral (10/27/15) Colonoscopy refused Depression (10/04/17) Elevated cholesterol (10/09/17) Elevated [facility]CV GLAUCOMA Glaucoma (02/24/16) [facility] Branch retinal vein occlusion w/macular edema left eye HLD (hyperlipidemia) HTN (hypertension) Hypertension (10/19/14) IFG (impaired fasting glucose) IFG (impaired fasting glucose) (12/10/15) Mammogram declined PCO (posterior capsular opacification), left (03/14/18) 03/14/18 L Macular Pucker, Dr Henriquez [facility] Poor memory (10/04/17) Sebaceous cyst of labia 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 Ruthie [facility]. Intravitreal injection with Avastin (01/03/16) 05/26/16 Shantanu Borrego MD Family History Mother , DM, Dementia at age 84. Dementia Father , Ca Prostate at age 82. Personal history of malignant neoplasm Prostate CA Son No problems noted. Son No problems noted. Daughter No problems noted. Social History Smoking/Tobacco Use Status: Never Smoking risk assessment performed?: Yes Alcohol Intake: current Alcohol Intake frequency: holidays/special occasions only Drug use: Never Substance use type: does not use Caregiver/Support person: No Household members: spouse Number of Children: 3 Communication Needs: None Current gender identity: female What type of physical activity do you participate in: walking Frequency: daily Exam Narrative Exam Narrative: Alise is lying in her bed. She is not responsive to sternal rub. Her pupils are fixed and small. Her heart was regular. Her breathing shallow but consistent. Her feet?severe onychomycosis Babinski present Results Last Vital Signs Temp 97.2 F L 06/19/21 08:15 Pulse 76 06/19/21 23:01 Resp 16 06/20/21 07:00 BP 93/53 L 12/05/21 23:01 Pulse Ox 93 06/20/21 07:[address]: IMPRESSION: 1. Extensive bilateral infiltrates. Suspicious for Covid pneumonia. No pleural effusions nor intrathoracic adenopathy. 2. Endotracheal tube distal tip is approximately 3 cm above the francis. NG tube is in the stomach. Head CT: IMPRESSION: Large subarachnoid and intraventricular hemorrhage. Labs Result diagrams: 06/18/21 22:18 06/18/21 22:18
--- NOTE | 2021-06-20 08:32 | PGE_ITS ---
Date of Service Date of service: 06/20/21 Time of Service: 11:41 Assessment and Plan Assessment and plan (1) Intracranial hemorrhage: Status: Acute Assessment and plan: Spontaneous intracerebral bleed while on fish oil. Per Neurosurgery, no surgical intervention at this point would alter the prognosis, which is poor. S/p comfort extubation. Continue to provide comfort care. (2) Aspiration pneumonia: Status: Acute Assessment and plan: Agree that this is due to an aspiration event. Not treating with abx as this would not alter the outcome. Continue comfort care. (3) Acute non-ST elevation myocardial infarction (NSTEMI): Status: Acute Assessment and plan: elevated troponin could be due to intracranial hemorrhage. No further workup/intervention at this time as it would not change her prognosis. (4) Acute respiratory failure: Status: Acute Assessment and plan: S/p comfort extubation. Actually breathing on her own, but gargling and snoring. Focus on comfort care. Subjective Subjective Interval history since last seen: The patient was comfort extubated overnight. Her propofol ran out ran out this morning and, per palliative care recomme ndations, was not resumed. She is actually breathing independently, but gurgling secretions. Not waking up. Low dose morphine drip initiated. The patient was asleep when I came to see her. Exam Narrative Exam Narrative: General: Elderly female who is resting in bed, appears comfortable, not waking up to my presence in her room, audibly gargling secretions HEENT: eyes closed, MMM Heart: not auscultated Lungs: snoring, gargling secretions Abdomen: nondistended Extremities: covered in blankets Objective Last Vital Signs Temp 36.2 C L 06/19/21 08:15 Pulse 76 06/19/21 23:01 Resp 16 06/20/21 07:00 BP 93/53 L 06/19/21 23:01 Pulse Ox 93 06/20/21 07:00 PAWSS Pt Consumed Any Amount of Alcohol Within the Last 30 days OR had positive SHAHAB Upon Admission: No
[2021-06-20] MEDS: ACETAMINOPHEN 1,000 MG/100 ML BTL 400 MG IVPB ×2 (08:51→15:28)
[2021-06-20] MEDS: Pantoprazole 40 MG VIAL IVP (08:51)
[2021-06-20] MEDS: MORPHine 250 MG in Normal Saline 245 ML IV (08:52)
--- NOTE | 2021-06-20 09:50 | PHA.REVIEW ---
Pharmacy Admission Review - Admission Clinical Review (Last Updated 06/19/21 @ 08:10 by Portillo Barrios MD) Palliative care patient (Acute) Intracranial hemorrhage (Acute) Aspiration pneumonia (Acute) Acute non-ST elevation myocardial infarction (NSTEMI) (Acute) Acute respiratory failure (Acute) Need for comfort care (Acute) No Known Drug Allergies Allergy (Verified 06/18/21 22:33) Resuscitation Status DNR/DNI Height 5 ft 8 in Weight 91 kg - Renal Dosing Renal Dosing: BUN 25 mg/dL (7-18) H 06/18/21 22:18 Creatinine 0.9 mg/dL (0.55-1.02) 06/18/21 22:18 Medications needing adjustments: Reviewed (SCr: 0.9, CrCl~64.7mL/min (using adjusted body weight). 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) - Relevant Labs Sodium 137 mmol/L (136-145) 06/18/21 22:18 Potassium 3.8 mmol/L (3.5-5.1) 06/18/21 22:18 Chloride 101 mmol/L (98-107) 06/18/21 22:18 Electrolytes, C-Reactive P, ESR: Reviewed - DM Control DM Control: Glucose 238 mg/dL (74-106) H 06/18/21 22:18 Insulin Dosing: N/A (Glucose slightly elevated, patient is 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) - Heart Failure/CA Heart Failure/CA: Troponin I 4.76 ng/mL (<0.06) H* 06/19/21 01:18 EF%, CORBIN's, B-Blockers, Diuretics: N/A - BP Control BP Control: Blood Pressure 93/53 Blood Pressure 95/54 If elevated: Reviewed - Qtc Review If Elevated: N/A (QTc 463 on admission.) - IV to PO Switch IV Medications: Reviewed - Home Meds Home Med List reviewed: Reviewed Relevent Home Meds Not ordered & why?: Home medications held, 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 - Current meds Current Medication Order Review: Reviewed - Comments Comments/Follow Ups: Continue to monitor infusion rate of morphine gtt, vitals, labs and for medication changes.
--- NOTE | 2021-06-20 10:06 | PDOC.CMPRO ---
- If Service Date Differs Date of service: 06/20/21 Time of Service: 10:06 Care Management Progress Note S/O: Alise was comfort extubated last night after her family visited. She was seen by Palliative Care today, who made recommendations for her end of life care. She was moved to [facility] today where her family will be able to visit her. Her son, Gee and daughter, Alise, have been visiting consistently during visitor hours, and they report that they do not expect Ramiro and/or Eris to visit often. Alise (daughter), has asked to be kept informed with any change in her mother's status. Alise's phone number is [phone]. CM will continue to support Alise and her family during this difficult time. A: Alise is a 76 year old female admitted to [facility] on 06/19/21 with an intracranial hemorrhage. P: Alise will remain at [facility] for end of life care. Her family and friends will be visiting during visiting hours. Her two consistent visitors are Ramiro, her , and Eris, her grandson. CM will continue to support Alise and her family during this difficult time.
[2021-06-20] MEDS: Scopolamine 1 MG/3 DAYS PATCH TD (11:18)
[2021-06-20] MEDS: Ondansetron 4 MG/2 ML VIAL IVP (17:50)
[2021-06-20] MEDS: LORazepam 2 MG/ML VIAL 1 MG IVP (18:04)
[2021-06-21] MEDS: ACETAMINOPHEN 1,000 MG/100 ML BTL 400 MG IVPB ×3 (00:08→15:23)
[2021-06-21] MEDS: levETIRAcetam 1,000 MG in Normal Saline 100 ML 400 MG IVPB ×2 (02:06→14:14)
[2021-06-21] MEDS: LORazepam 2 MG/ML VIAL 1 MG IVP ×2 (10:41→13:28)
[2021-06-21] MEDS: Normal Saline Flush 10 ML SYR IVP ×2 (10:42→14:38)
--- NOTE | 2021-06-21 15:44 | CHAPLAIN ---
Alise suffered a catastrophic cerebral hemorrhage and was intubated in the ICU. Plans were made to extubate her with the expectation that she would likely not live long after being extubated, however she is still breathing, shallow breaths, about six a minute. Her son and daughter, Lyndsey, traveled from [place] and [place], respectively, and arrived last night. They have been here consistently during visiting hours. Alise's , Ramiro (who is not Gee and Alise's father) was named as one of the two consistent visitors, along with a grandson who lives at home along with Alise and Ramiro, so they can visit at anytime. Alise is Yazidi and her children asked that we get the oxyhydrogen welder from [facility] to offer anointing of the sick, and Fr. Pappas arrived today to do that. Alise (daughter) and Gee said that Ramiro is stepping up and taking care of banking concerns and meeting with the home this afternoon. Alise (patient) wasn't expected to live long after being extubated. Gee and Alise (daughter) are very attentive to Alise, sharing stories about her their mom, and speaking with her. Ramiro, Gee and other family members were scheduled to meet with staff from [facility] in [place] this afternoon.
--- NOTE | 2021-06-21 16:02 | W.PM.PROGNOT ---
Date of Service Date of service: 06/21/21 Time of Service: 16:02 Assessment and Plan Assessment and plan (1) Intracranial hemorrhage: Status: Acute Assessment and plan: Spontaneous intracerebral bleed while on fish oil. Per Neurosurgery, no surgical intervention at this point would alter the prognosis, which is poor. S/p comfort extubation. Continue to provide comfort care. (2) Aspiration pneumonia: Status: Acute Assessment and plan: Agree that this is due to an aspiration event. Not treating with abx as this would not alter the outcome. Continue comfort care. (3) Acute non-ST elevation myocardial infarction (NSTEMI): Status: Acute Assessment and plan: elevated troponin could be due to intracranial hemorrhage. No further workup/intervention at this time as it would not change her prognosis. (4) Discharge planning issues: Status: Acute Assessment and plan: will remain here for end of life care. discussed with Dr Calderon Subjective Subjective Interval history since last seen: patient remains unresponsive with no evidence of distress, having periods of apnea Exam Const General: comfortable and no acute distress Nutritional Appearance: obese HENMT Head: normal to inspection Resp Effort & Inspection: no respiratory distress, no use of accessory muscles and other (irregular with periods of apnea) Skin General skin exam: other (dusky) Neuro General: patient obtunded Objective Last Vital Signs Temp 36.2 C L 06/19/21 08:15 Pulse 76 06/19/21 23:01 Resp 16 06/20/21 07:00 BP 93/53 L 06/19/21 23:01 Pulse Ox 93 06/20/21 07:00 PAWSS Pt Consumed Any Amount of Alcohol Within the Last 30 days OR had positive SHAHAB Upon Admission: No
--- NOTE | 2021-06-21 18:04 | CMPROGNOTE_ITS ---
- If Service Date Differs Date of service: 06/21/21 Time of Service: 18:04 Care Management Progress Note S/O: Alise was resting comfortably when CM met with her. She is on a morphine drip, which was increased today to 5mg/hr. CM met with her children, Alise and Gee during their visit. Alise (daughter), has asked to be kept informed with any change in her mother's status. Alise's phone number is [phone]. CM will continue to support Alise and her family during this difficult time. A: Alise is a 76 year old female admitted to [facility] on 06/19/21 with an intracranial hemorrhage. P: Alise will remain at [facility] for end of life care. Her family and friends will be visiting during visiting hours. Her two consistent visitors are Ramiro, her , and Eris, her grandson. CM will continue to support Alise and her family during this difficult time.
--- NOTE | 2021-06-22 09:10 | W.PM.DDS ---
Date of service: 06/21/21 Time of Service: 19:10 Discharge Sum: Prov Provider Consults: 06/20/21 07:31 Palliative Care Consult [CONS] Routine Consultation Status:: Follow-up needed Clarification:: Manage/follow per spec. Reason for consult:: catastrophic brain bleed Discharge Sum: Diag Contributing Factors (1) Intracranial hemorrhage: (2) Aspiration pneumonia: (3) Acute non-ST elevation myocardial infarction (NSTEMI): (4) Discharge planning issues:
== END 2021-06-21 18:33 | disposition expired | DRG 64 ==
LOC: ER 06-19 02:27 → ICU 06-19 07:50 → MS 06-20 15:39
PROVIDERS: Admitting Provider Family Medicine; Emergency Provider Student in an Organized Health Care Education/Training Program; PCP Nurse Practitioner; Visit Provider Family Medicine
DX: I62.9 Nontraumatic intracranial hemorrhage, unspecified (principal); J69.0 Pneumonitis due to inhalation of food and vomit; I21.4 Non-ST elevation (NSTEMI) myocardial infarction; J96.00 Acute respiratory failure, unspecified whether with hypoxia or hypercapnia; Z51.5 Encounter for palliative care; D64.9 Anemia, unspecified; F41.9 Anxiety disorder, unspecified; F32.A Depression, unspecified; E78.5 Hyperlipidemia, unspecified; I10 Essential (primary) hypertension; R73.01 Impaired fasting glucose; Z20.822 Contact with and (suspected) exposure to COVID-19
CPT/HCPCS: 31500; 71250; 80053; 80307; 82805; 87635; 93005; 96365; 96366; 96367; 99291; 99292; 70450; 80329; 81003; 81015; 84443; 84484; 85025; 85610; 85730; 93010; 94002; 99222; 99231; 99232; J0131; J0295; J1953; J2060; J2270; J2405